=== PATIENT | female | born 1975 | race Hispanic/Latino ===

== ENCOUNTER 2023-05-04 16:04 | Emergency (ER) | payer OTHER ==
[~2023-05-04] VITALS: Ht 172.7 cm; Wt 126.8 kg
[2023-05-04] MEDS ORDERED: KETOROLAC TROMETHAMINE 60 MG/2 ML VIAL IM ONE (16:30)
[2023-05-04] MEDS ORDERED: ALLEGRA ALLERGY60 MG PO (16:49)
[2023-05-04] MEDS ORDERED: PROBIOTIC & AC1 EACH PO (16:49)
[2023-05-04] MEDS ORDERED: PROTONIX20 MG PO (16:49)
[2023-05-04] MEDS ORDERED: DICYCLOMINE HCL20 MG PO (16:49)
[2023-05-04] MEDS ORDERED: METHOCARBAMOL500 MG PO (17:44)
[2023-05-04] MEDS ORDERED: NAPROSYN500 MG PO (17:44)
[2023-05-04 17:55] VITALS: O2SAT 99
== END 2023-05-04 17:55 | disposition home or self-care (01) ==
LOC: FSED 16:10
DX: M25.511 Pain in right shoulder (principal); S46.811A Strain of other muscles, fascia and tendons at shoulder and upper arm level, right arm, initial encounter; S16.1XXA Strain of muscle, fascia and tendon at neck level, initial encounter; R51.9 Headache, unspecified; V43.62XA Car passenger injured in collision with other type car in traffic accident, initial encounter; Y92.488 Other paved roadways as the place of occurrence of the external cause; K21.9 Gastro-esophageal reflux disease without esophagitis; Z98.84 Bariatric surgery status
CPT/HCPCS: 70450; 72125; 73030; 96372; 99283; J1885

== ENCOUNTER 2024-05-07 17:47 | Emergency (ER) | payer OTHER ==
[~2024-05-07] VITALS: Ht 172.7 cm; Wt 125.2 kg
[~2024-05-07 17:47] MED LIST: ALLEGRA ALLERGY60 MG PO; DICYCLOMINE HCL20 MG PO; METHOCARBAMOL500 MG PO; NAPROSYN500 MG PO; PROBIOTIC & AC1 EACH PO; PROTONIX20 MG PO
[2024-05-07 18:42] VITALS: PULSE 77; RESP 18; TEMP 98.3; O2SAT 100
== END 2024-05-07 19:23 | disposition home or self-care (01) ==
LOC: FSED 17:52
DX: R09.89 Other specified symptoms and signs involving the circulatory and respiratory systems (principal); J06.9 Acute upper respiratory infection, unspecified; K21.9 Gastro-esophageal reflux disease without esophagitis; E66.9 Obesity, unspecified; Z98.84 Bariatric surgery status; Z11.52 Encounter for screening for COVID-19
CPT/HCPCS: 0223U; 83518; 87400; 99283